=== PATIENT | female | born 1940 | race Asian ===

== ENCOUNTER 2017-08-12 12:15 | Outpatient (RCR) | payer OTHER | END 2017-09-04 | disposition home or self-care (01) | LOC: PTY 12:15 | PROVIDERS: ATTEND Internal Medicine | DX: M51.16 Intervertebral disc disorders with radiculopathy, lumbar region (principal) | CPT/HCPCS: 97110; 97140; 97161; G0283 ==

== ENCOUNTER 2017-09-09 10:15 | Outpatient (RCR) | payer OTHER | END 2017-10-04 | disposition home or self-care (01) | LOC: PTY 10:15 | PROVIDERS: ATTEND Internal Medicine | DX: M51.16 Intervertebral disc disorders with radiculopathy, lumbar region (principal) | CPT/HCPCS: 97110; 97140; G0283 ==

== ENCOUNTER 2017-10-06 08:45 | Outpatient (RCR) | payer OTHER | END 2017-11-04 | disposition home or self-care (01) | LOC: PTY 08:45 | PROVIDERS: ATTEND Internal Medicine | DX: M51.16 Intervertebral disc disorders with radiculopathy, lumbar region (principal); I10 Essential (primary) hypertension; E11.9 Type 2 diabetes mellitus without complications; M81.0 Age-related osteoporosis without current pathological fracture ==